=== PATIENT | male | born 1950 | race Two or more races ===

== ENCOUNTER 2017-07-13 18:32 | Emergency (ER) | payer OTHER ==
[~2017-07-13] VITALS: Ht 167.6 cm; Wt 80.3 kg
[~2017-07-13 18:32] MED LIST: KLONOPIN0.5 MG/TAB; MICARDIS40 MG; OMEPRAZOLE20 M1
[2017-07-13] MEDS ORDERED: ASPIRIN81 M1 (18:42)
== END 2017-07-13 23:53 | disposition home or self-care (01) ==
LOC: ER 18:32
DX: J11.1 Influenza due to unidentified influenza virus with other respiratory manifestations (principal)

== ENCOUNTER 2018-05-13 13:21 | Emergency (ER) | payer OTHER ==
[~2018-05-13] VITALS: Ht 167.6 cm; Wt 79.4 kg
[~2018-05-13 13:21] MED LIST changes: +ASPIRIN81 M1
== END 2018-05-13 18:42 | disposition home or self-care (01) ==
LOC: ER 13:21
DX: S39.82XA Other specified injuries of lower back, initial encounter (principal); M54.89 Other dorsalgia; V49.49XA Driver injured in collision with other motor vehicles in traffic accident, initial encounter; Y93.89 Activity, other specified; Y92.488 Other paved roadways as the place of occurrence of the external cause; Y99.8 Other external cause status

== ENCOUNTER → 2019-03-31 | Emergency (ER) | payer OTHER ==
[~2019-03-31] VITALS: Ht 167.6 cm; Wt 80.7 kg
== END | disposition home or self-care (01) ==
LOC: ER 18:23
DX: G24.3 Spasmodic torticollis (principal)

== ENCOUNTER → 2019-05-03 | Outpatient (CLI) | payer OTHER | END | disposition home or self-care (01) | LOC: RAD 16:06 | DX: M79.674 Pain in right toe(s) (principal) ==

== ENCOUNTER 2020-05-22 07:30 | Outpatient (CLI) | payer OTHER | END 2020-05-22 07:43 | disposition home or self-care (01) | LOC: RAD 07:30 | PROVIDERS: ATTEND Internal Medicine Gastroenterology | DX: K76.0 Fatty (change of) liver, not elsewhere classified (principal); Q61.02 Congenital multiple renal cysts; R16.0 Hepatomegaly, not elsewhere classified; I10 Essential (primary) hypertension; R07.89 Other chest pain ==

== ENCOUNTER 2020-07-08 09:28 | Outpatient (CLI) | payer OTHER | END 2020-07-08 09:33 | disposition home or self-care (01) | LOC: LAB 09:28 | PROVIDERS: ATTEND Radiology Diagnostic Radiology | DX: N39.0 Urinary tract infection, site not specified (principal) ==

== ENCOUNTER 2020-07-09 07:49 | Outpatient (CLI) | payer OTHER | END 2020-07-09 07:59 | disposition HB | LOC: MRI 07:49 | DX: G43.809 Other migraine, not intractable, without status migrainosus (principal); H57.12 Ocular pain, left eye | CPT/HCPCS: 70553; A9575 ==

== ENCOUNTER 2020-11-04 07:23 | Outpatient (CLI) | payer OTHER | END 2020-11-04 07:25 | disposition home or self-care (01) | LOC: TOM 07:23 | PROVIDERS: ATTEND Internal Medicine Gastroenterology | DX: R10.13 Epigastric pain (principal); R10.12 Left upper quadrant pain; R10.33 Periumbilical pain; K52.89 Other specified noninfective gastroenteritis and colitis | CPT/HCPCS: 74178; Q9965 ==